=== PATIENT | male | born 1980 | race Caucasian/White ===

== ENCOUNTER 2016-07-02 20:32 | Emergency (ER) | payer OTHER ==
--- NOTE | 2016-07-02 21:33 | ED CLINICAL REPORT ---
Clinical Report - Physicians/Mid Levels [facility] [address] [place] [address] 07/02/2016 20:32 [id number] Time Seen: 20:52 Mar 2016. Arrived- By private vehicle. Historian- patient. HISTORY OF PRESENT ILLNESS Chief Complaint: Injury to the left index finger. The injury happened just prior to arrival. The patient sustained a laceration. Occurred at home. ( lac from sheet metal on left index finger, unknown last tetanus.). REVIEW OF SYSTEMS The patient sustained a laceration. All systems otherwise negative, except as recorded above. PAST HISTORY The patient's dominant hand is the right. He has not had a prior injury to the same area. Tetanus immunization status is unknown. SOCIAL HISTORY Never smoker. Alcohol use. No drug use. ADDITIONAL NOTES The nursing notes have been reviewed. PHYSICAL EXAM Vital Signs: 07/02/2016 20:39 BP: 126/84. HR: 101. RR: 20. O2 saturation: 96%. Temp: 99.2 F. Pain level now: 0/10. Appearance: Alert. No acute distress. Head: Head atraumatic. CVS: Normal heart rate and rhythm. Heart sounds normal. Respiratory: No respiratory distress. Breath sounds normal. Skin: Skin warm. Extremities: Left index finger: (abrasion distal to the dip deep/ skin avulsion). (full rom, no fb, no erythema. good distal sensation, cap refill < 3 secs). No wrist injury. Neuro, Vascular and Tendons: Vascular status intact. No pulse deficit present. Motor intact. PROGRESS AND PROCEDURES Course of Care: Bupivicain used for digital block to left index, then direct lido and epi 1 cc used, and pressure dressing, with good coagulation, and no further bleeding, full rom, no fb, no signs of infectious process. Stable. To f/u outpatient. Patient is stable. Physical exam findings are improved. Symptoms better. Patient/family counseled. Disposition: Discharged. Condition: good. CLINICAL IMPRESSION Single deep skin avulsion of the left index finger. INSTRUCTIONS Elevate affected areas above chest level. Limit use of your hand. (leave dressing in place for 36 hours). Warnings: TETANUS: You were given a tetanus shot during your visit. Make a note for future reference. Understanding of the discharge instructions verbalized by patient. (Electronically signed by Mariam Kohli P.A.-C 07/02/2016 21:45)
--- NOTE | 2016-07-02 21:33 | ED NURSING NOTES ---
Clinical Report - Nurses [facility] [place] [address] [place] [address] 07/02/2016 20:32 Patient: AUGUSTO HAILE TRIAGE Triage time 20:39. Acuity: LEVEL 3. Chief Complaint: INJURY TO LEFT HAND. INJURY TO THE LEFT INDEX FINGER. Alert. No acute distress. SEPSIS SCREEN: Sepsis Screen: negative. Negative (no infection suspected/documented). NIYA COMA SCORE: [employer] Coma Scale: 15- eyes open spontaneously (4); best verbal response- oriented x 4 (5); best motor response- obeys commands (6). --20:44 Ameena Pittman R.N. 20:39 07/02/16. BP: 126/84. HR: 101. RR: 20. O2 saturation: 96% on room air. Temp: 99.2 F. Pain level now: 0/10. --20:44 Ameena Pittman R.N. Weight: 127 kg stated. Height/Length: 69 inches Per Patient. BMI: 41.4. --20:44 Ameena Pittman R.N. Medications Lisinopril Oral 10 mg, daily. --20:41 Ameena Pittman R.N. Medication/allergy information source: the patient. --20:44 Ameena Pittman R.N. Allergies Crustations . --20:41 Ameena Pittman R.N. History Arrived by private vehicle. Historian: patient. Accompanied by family. This occurred just prior to arrival. Occurred at home. 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 PAST MEDICAL HX: Hypertension. Tetanus status: unknown. SURGERY HX: No history of previous surgery. SOCIAL HX: Never smoker. Occasional alcohol use. No drug use. FALL RISK ASSESSMENT: Fall risk assessment completed. No fall risk identified. NUTRITIONAL RISK ASSESSMENT: The nutritional risk assessment revealed no deficiencies. FUNCTIONAL ASSESSMENT: Functional assessment: no impairments noted. LEARNING NEEDS ASSESSMENT: The learning needs assessment revealed no barriers. SKIN INTEGRITY ASSESSMENT: Skin integrity risk assessment completed. No skin integrity risk identified. --20:44 Ameena Pittman R.N. Primary physician (jasmin). --20:44 Ameena Pittman R.N. Interventions ID band on patient. To room. --20:44 Ameena Pittman R.N. PHYSICAL ASSESSMENT Ambulatory to room. GENERAL / NEURO / PSYCH: Oriented X 4. Alert. Appears anxious. CVS: Capillary refill is greater than 2 seconds. EXTREMITIES: Limited ROM present. Left hand: subcutaneous laceration. SKIN: Skin is warm and dry. Single laceration to left index finger. Bleeding is present. --20:46 Ameena Pittman R.N. NURSING PROGRESS NOTES Extremity elevated. Two patient identifiers checked. Call light placed in reach. Side rails up x 2. Bed placed in lowest position. Brakes of bed on. Patient ready for evaluation. --20:46 Ameena Pittman R.N. 20:58 07/02/2016 TDAP IM 0.5 mL given. (Lot#: [id number], expiration date: 01/30/2018, Blade Changer: sanofi pasteur). Given in the right deltoid. Allergies verified and confirmed 5 rights. Vaccine information statement provided to the patient. --20:58 Ameena Pittman R.N. Wound cleansed with sterile saline. --21:02 Juliette Canas 21:30. Applied clean pressure dressing consisting of xeroform. Secured with tape. --22:01 Ameena Pittman R.N. DISPOSITION / DISCHARGE 21:35. Condition at departure: improved. No learning barriers present. Discharge instructions provided and reviewed with the patient and spouse. Reviewed wound care instructions. Patient verbalized understanding. Written instructions provided in Yakut. The patient was discharged home and accompanied by ad taker. He left the Emergency Department ambulatory and via private vehicle. Family member driving. Medication list reviewed and validated. --21:43 Ameena Pittman R.N. 21:42 07/02/16. BP: deferred. HR: 90. RR: 20. O2 saturation: 99% on room air. Temp: deferred. 20:39 07/02/16. BP: 126/84. HR: 101. RR: 20. O2 saturation: 96% on room air. Temp: 99.2 F. Pain level now: 0/10. --21:43 Ameena Pittman R.N. Locked/Released at 07/02/2016 22:02 by Ameena Pittman R.N.
--- NOTE | 2016-07-02 21:33 | ED NURSING NOTES ---
Clinical Report - [facility] [place] [address] 07/02/2016 20:32 Patient: AUGUSTO HAILE TRIAGE Triage time 20:39. Acuity: LEVEL 3. Chief Complaint: INJURY TO LEFT HAND. INJURY TO THE LEFT INDEX FINGER. Alert. No acute distress. SEPSIS SCREEN: Sepsis Screen: negative. Negative (no infection suspected/documented). NIYA COMA SCORE: [place] Coma Scale: 15- eyes open spontaneously (4); best verbal response- oriented x 4 (5); best motor response- obeys commands (6). --20:44 Ameena Pittman R.N. 20:39 07/02/16. BP: 126/84. HR: 101. RR: 20. O2 saturation: 96% on room air. Temp: 99.2 F. Pain level now: 0/10. --20:44 Ameena Pittman R.N. Weight: 127 kg stated. Height/Length: 69 inches Per Patient. BMI: 41.4. --20:44 Ameena Pittman R.N. Medications Lisinopril Oral 10 mg, daily. --20:41 Ameena Pittman R.N. Medication/allergy information source: the patient. --20:44 Ameena Pittman R.N. Allergies Crustations . --20:41 Ameena Pittman R.N. History Arrived by private vehicle. Historian: patient. Accompanied by family. This occurred just prior to arrival. Occurred at home. 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 PAST MEDICAL HX: Hypertension. Tetanus status: unknown. SURGERY HX: No history of previous surgery. SOCIAL HX: Never smoker. Occasional alcohol use. No drug use. FALL RISK ASSESSMENT: Fall risk assessment completed. No fall risk identified. NUTRITIONAL RISK ASSESSMENT: The nutritional risk assessment revealed no deficiencies. FUNCTIONAL ASSESSMENT: Functional assessment: no impairments noted. LEARNING NEEDS ASSESSMENT: The learning needs assessment revealed no barriers. SKIN INTEGRITY ASSESSMENT: Skin integrity risk assessment completed. No skin integrity risk identified. --20:44 Ameena Pittman R.N. Primary physician (jasmin). --20:44 Ameena Pittman R.N. Interventions ID band on patient. To room. --20:44 Ameena Pittman R.N. PHYSICAL ASSESSMENT Ambulatory to room. GENERAL / NEURO / PSYCH: Oriented X 4. Alert. Appears anxious. CVS: Capillary refill is greater than 2 seconds. EXTREMITIES: Limited ROM present. Left hand: subcutaneous laceration. SKIN: Skin is warm and dry. Single laceration to left index finger. Bleeding is present. --20:46 Ameena Pittman R.N. NURSING PROGRESS NOTES Extremity elevated. Two patient identifiers checked. Call light placed in reach. Side rails up x 2. Bed placed in lowest position. Brakes of bed on. Patient ready for evaluation. --20:46 Ameena Pittman R.N. 20:58 07/02/2016 TDAP IM 0.5 mL given. (Lot#: [id number], expiration date: 01/30/2018, Special Order Jeweler: sanofi pasteur). Given in the right deltoid. Allergies verified and confirmed 5 rights. Vaccine information statement provided to the patient. --20:58 Ameena Pittman R.N. Wound cleansed with sterile saline. --21:02 Juliette Canas 21:30. Applied clean pressure dressing consisting of xeroform. Secured with tape. --22:01 Ameena Pittman R.N. DISPOSITION / DISCHARGE 21:35. Condition at departure: improved. No learning barriers present. Discharge instructions provided and reviewed with the patient and spouse. Reviewed wound care instructions. Patient verbalized understanding. Written instructions provided in Serbian. The patient was discharged home and accompanied by resolution expert. He left the Emergency Department ambulatory and via private vehicle. Family member driving. Medication list reviewed and validated. --21:43 Ameena Pittman R.N. 21:42 07/02/16. BP: deferred. HR: 90. RR: 20. O2 saturation: 99% on room air. Temp: deferred. 20:39 07/02/16. BP: 126/84. HR: 101. RR: 20. O2 saturation: 96% on room air. Temp: 99.2 F. Pain level now: 0/10. --21:43 Ameena Pittman R.N. Locked/Released at 07/02/2016 22:02 by Ameena Pittman R.N.
--- NOTE | 2016-07-02 21:33 | ED ORDER SUMMARY ---
..... Patient: AUGUSTO HAILE OrderSheet [facility] VisitID: [id number] [address] [place] [address] 35y, M Registration Date/Time: 07/02/2016 ORDER SHEET Weight: 127.0 kg (stated) Allergies: Crustations GENERAL ORDERS: MEDICATION ORDERS: Tdap IM 0.5 mL (NOW, per protocol) (20:52 07/02/2016 Kathryn Emmanuel) (20:58 Clayton Hartmann) IV FLUIDS: ORDER SHEET NOTES: [Electronically signed by Mariam Kohli P.A.-C (21:45 07/02/2016)] [Electronically signed by Ameena Pittman R.N. (22:02 07/02/2016)] [Electronically locked/signed by Ameena Pittman R.N. (22:02 07/02/2016)]
--- NOTE | 2016-07-02 21:33 | ED ORDER SUMMARY ---
..... Patient: AUGUSTO HAILE OrderSheet [facility] VisitID: [id number] [address] [place] [address] 35y, M Registration Date/Time: 07/02/2016 ORDER SHEET Weight: 127.0 kg (stated) Allergies: Crustations GENERAL ORDERS: MEDICATION ORDERS: Tdap IM 0.5 mL (NOW, per protocol) (20:52 07/02/2016 Kathryn Emmanuel) (20:58 Clayton Hartmann) IV FLUIDS: ORDER SHEET NOTES: [Electronically signed by Mariam Kohli P.A.-C (21:45 07/02/2016)] [Electronically signed by Ameena Pittman R.N. (22:02 07/02/2016)] [Electronically locked/signed by Ameena Pittman R.N. (22:02 07/02/2016)]
--- NOTE | 2016-07-02 21:33 | ED CLINICAL REPORT ---
Clinical Report - Physicians/Mid Levels [facility] [address] [place] [address] 07/02/2016 20:32 [id number] Time Seen: 20:52 Mar 2016. Arrived- By private vehicle. Historian- patient. HISTORY OF PRESENT ILLNESS Chief Complaint: Injury to the left index finger. The injury happened just prior to arrival. The patient sustained a laceration. Occurred at home. ( lac from sheet metal on left index finger, unknown last tetanus.). REVIEW OF SYSTEMS The patient sustained a laceration. All systems otherwise negative, except as recorded above. PAST HISTORY The patient's dominant hand is the right. He has not had a prior injury to the same area. Tetanus immunization status is unknown. SOCIAL HISTORY Never smoker. Alcohol use. No drug use. ADDITIONAL NOTES The nursing notes have been reviewed. PHYSICAL EXAM Vital Signs: 07/02/2016 20:39 BP: 126/84. HR: 101. RR: 20. O2 saturation: 96%. Temp: 99.2 F. Pain level now: 0/10. Appearance: Alert. No acute distress. Head: Head atraumatic. CVS: Normal heart rate and rhythm. Heart sounds normal. Respiratory: No respiratory distress. Breath sounds normal. Skin: Skin warm. Extremities: Left index finger: (abrasion distal to the dip deep/ skin avulsion). (full rom, no fb, no erythema. good distal sensation, cap refill < 3 secs). No wrist injury. Neuro, Vascular and Tendons: Vascular status intact. No pulse deficit present. Motor intact. PROGRESS AND PROCEDURES Course of Care: Bupivicain used for digital block to left index, then direct lido and epi 1 cc used, and pressure dressing, with good coagulation, and no further bleeding, full rom, no fb, no signs of infectious process. Stable. To f/u outpatient. Patient is stable. Physical exam findings are improved. Symptoms better. Patient/family counseled. Disposition: Discharged. Condition: good. CLINICAL IMPRESSION Single deep skin avulsion of the left index finger. INSTRUCTIONS Elevate affected areas above chest level. Limit use of your hand. (leave dressing in place for 36 hours). Warnings: TETANUS: You were given a tetanus shot during your visit. Make a note for future reference. Understanding of the discharge instructions verbalized by patient. (Electronically signed by Mariam Kohli P.A.-C 07/02/2016 21:45)
--- NOTE | 2016-07-02 22:02 | ED MAR SUMMARY ---
..... Medication Administration Record [facility] [address] [place] [address] Patient: AUGUSTO HAILE Visit ID: [id number] 35y, M Weight: 127.0 kg Height/Length: 69 in BMI: 41.4 ALLERGIES: Crustations Given 20:58 07/02/2016 Ameena Pittman R.N. Medication Administered: TDAP [IM], Dose: 0.5 mL IM. Medication Ordered: Tdap IM 0.5 mL (NOW, per protocol).
--- NOTE | 2016-07-02 22:02 | ED MAR SUMMARY ---
..... Medication Administration Record [facility] [address] [place] [address] Patient: AUGUSTO HAILE Visit ID: [id number] 35y, M Weight: 127.0 kg Height/Length: 69 in BMI: 41.4 ALLERGIES: Crustations Given 20:58 07/02/2016 Ameena Ptitman R.N. Medication Administered: TDAP [IM], Dose: 0.5 mL IM. Medication Ordered: Tdap IM 0.5 mL (NOW, per protocol).
--- NOTE | 2016-07-02 22:02 | ED DISCHARGE INSTRUCTIONS ---
Patient: AUGUSTO HAILE General Instructions [facility] VisitID: [id number] [address] [place] [address] 35y, M Registration Date/Time: 07/02/2016 Single deep skin avulsion of the left index finger. INSTRUCTIONS Elevate affected areas above chest level. Limit use of your hand. (leave dressing in place for 36 hours). Warnings: TETANUS: You were given a tetanus shot during your visit. Make a note for future reference. Understanding of the discharge instructions verbalized by patient. ADDITIONAL INFORMATION Diphtheria Toxoid Adsorbed, Pertussis Vaccine, Acellular (Adsorbed), Tetanus Toxoid, Adsorbed Suspension for injection What is this medicine? DIPHTHERIA and TETANUS TOXOIDS; PERTUSSIS VACCINE (dif THEER ee uh and TET n us TOK soids; per MYRON high SEEN) is used to prevent diphtheria, tetanus, and pertussis infections. How should I use this medicine? This vaccine is for injection into a muscle. It is given by a health child day care teacher. A copy of Vaccine Information Statements will be given before each vaccination. Read this sheet carefully each time. The sheet may change frequently. Talk to your director safety council regarding the use of this vaccine in children. While the DTP vaccine may be given to children ages 6 weeks to 7 years and the Tdap vaccine may be given to children at least 10 years old, precautions do apply. What side effects may I notice from receiving this medicine? Side effects that you should report to your doctor or health child day care teacher as soon as possible: allergic reactions like skin rash, itching or hives, swelling of the face, lips, or tongue breathing problems fever of 103 degrees F or more flu-like symptoms inconsolable crying infection pain, tingling, numbness in the hands or feet seizures swelling of arm or leg that was injected unusually weak or tired Side effects that usually do not require immediate medical attention (report these side effects to your doctor or health child day care teacher if they continue or are bothersome): fussy, irritable loss of appetite fever of 102 degrees F or less pain, tenderness, redness, swelling, or a 'knot' at site where injected vomiting What may interact with this medicine? immune globulin medicines that suppress your immune function like adalimumab, anakinra, infliximab medicines to treat cancer medicines that treat or prevent blood clots like warfarin, enoxaparin, and dalteparin steroid medicines like prednisone or cortisone What if I miss a dose? It is important not to miss your dose. Call your doctor or health child day care teacher if you are unable to keep an appointment. Where should I keep my medicine? This drug is given in a hospital or clinic and will not be stored at home. What should I tell my health care provider before I take this medicine? They need to know if you have any of these conditions: blood disorders like hemophilia fever or infection immune system problems neurologic disease seizures an unusual or allergic reaction to vaccines, thimerosal, latex, other medicines, foods, dyes, or preservatives or trying to get breast-feeding What should I watch for while using this medicine? See your health care provider for all shots of this vaccine as directed. To have protection from infection, you must have 3 shots of this vaccine plus boosters as needed. Tell your doctor right away if you have any serious or unusual side effects after getting this vaccine. You have been given the following additional information: Diphtheria Toxoid Adsorbed, Pertussis Vaccine, Acellular (Adsorbed), Tetanus Toxoid, Adsorbed Suspension for injection Limit use of your hand. (Electronically signed by Mariam Kohli P.A.-C 07/02/2016 21:45)
--- NOTE | 2016-07-02 22:02 | ED MED RECONCILIATION SUMMARY ---
Patient: AUGUSTO HAILE Medication Reconciliation Report [facility] VisitID: [id number] [address] [place] [address] 35y, M Registration Date/Time: 07/02/2016 Weight: 127.0 kg Height/Length: 69 in. BMI: 41.4 ALLERGIES: Crustations The patient's Home Medications are listed below: THE FOLLOWING MEDICATIONS NEED TO BE RECONCILED: Lisinopril Oral 10 mg, daily The source(s) of the original Home Medication information: patient The following Medications were given to the patient in the Emergency Department: TDAP [IM] IM 0.5 mL, administered: 07/02/2016 8:58:00 PM The following Medications were prescribed to the patient: None.
--- NOTE | 2016-07-02 22:02 | ED MED RECONCILIATION SUMMARY ---
Patient: AUGUSTO HAILE Medication Reconciliation Report [facility] VisitID: [id number] [address] [place] [address] 35y, M Registration Date/Time: 07/02/2016 Weight: 127.0 kg Height/Length: 69 in. BMI: 41.4 ALLERGIES: Crustations The patient's Home Medications are listed below: THE FOLLOWING MEDICATIONS NEED TO BE RECONCILED: Lisinopril Oral 10 mg, daily The source(s) of the original Home Medication information: patient The following Medications were given to the patient in the Emergency Department: TDAP [IM] IM 0.5 mL, administered: 07/02/2016 8:58:00 PM The following Medications were prescribed to the patient: None.
--- NOTE | 2016-07-02 22:02 | ED DISCHARGE INSTRUCTIONS ---
Patient: AUGUSTO HAILE General Instructions [facility] VisitID: [id number] [address] [place] [address] 35y, M Registration Date/Time: 07/02/2016 Single deep skin avulsion of the left index finger. INSTRUCTIONS Elevate affected areas above chest level. Limit use of your hand. (leave dressing in place for 36 hours). Warnings: TETANUS: You were given a tetanus shot during your visit. Make a note for future reference. Understanding of the discharge instructions verbalized by patient. ADDITIONAL INFORMATION Diphtheria Toxoid Adsorbed, Pertussis Vaccine, Acellular (Adsorbed), Tetanus Toxoid, Adsorbed Suspension for injection What is this medicine? DIPHTHERIA and TETANUS TOXOIDS; PERTUSSIS VACCINE (dif THEER ee uh and TET n us TOK soids; per MYRON high SEEN) is used to prevent diphtheria, tetanus, and pertussis infections. How should I use this medicine? This vaccine is for injection into a muscle. It is given by a health home care provider. A copy of Vaccine Information Statements will be given before each vaccination. Read this sheet carefully each time. The sheet may change frequently. Talk to your hardwood floor finisher regarding the use of this vaccine in children. While the DTP vaccine may be given to children ages 6 weeks to 7 years and the Tdap vaccine may be given to children at least 10 years old, precautions do apply. What side effects may I notice from receiving this medicine? Side effects that you should report to your doctor or health home care provider as soon as possible: allergic reactions like skin rash, itching or hives, swelling of the face, lips, or tongue breathing problems fever of 103 degrees F or more flu-like symptoms inconsolable crying infection pain, tingling, numbness in the hands or feet seizures swelling of arm or leg that was injected unusually weak or tired Side effects that usually do not require immediate medical attention (report these side effects to your doctor or health home care provider if they continue or are bothersome): fussy, irritable loss of appetite fever of 102 degrees F or less pain, tenderness, redness, swelling, or a 'knot' at site where injected vomiting What may interact with this medicine? immune globulin medicines that suppress your immune function like adalimumab, anakinra, infliximab medicines to treat cancer medicines that treat or prevent blood clots like warfarin, enoxaparin, and dalteparin steroid medicines like prednisone or cortisone What if I miss a dose? It is important not to miss your dose. Call your doctor or health home care provider if you are unable to keep an appointment. Where should I keep my medicine? This drug is given in a hospital or clinic and will not be stored at home. What should I tell my health care provider before I take this medicine? They need to know if you have any of these conditions: blood disorders like hemophilia fever or infection immune system problems neurologic disease seizures an unusual or allergic reaction to vaccines, thimerosal, latex, other medicines, foods, dyes, or preservatives or trying to get breast-feeding What should I watch for while using this medicine? See your health care provider for all shots of this vaccine as directed. To have protection from infection, you must have 3 shots of this vaccine plus boosters as needed. Tell your doctor right away if you have any serious or unusual side effects after getting this vaccine. You have been given the following additional information: Diphtheria Toxoid Adsorbed, Pertussis Vaccine, Acellular (Adsorbed), Tetanus Toxoid, Adsorbed Suspension for injection Limit use of your hand. (Electronically signed by Mariam Kohli P.A.-C 07/02/2016 21:45)
== END 2016-07-02 21:35 | disposition home or self-care (01) ==
LOC: ED SRH 20:32
DX: S61.211A Laceration without foreign body of left index finger without damage to nail, initial encounter (principal); W45.8XXA Other foreign body or object entering through skin, initial encounter; Y92.009 Unspecified place in unspecified non-institutional (private) residence as the place of occurrence of the external cause; Y99.9 Unspecified external cause status; Y93.9 Activity, unspecified